=== PATIENT | female | born 1955 | race Caucasian/White ===

== ENCOUNTER 2017-10-29 11:40 | Day surgery (SDC) | payer BC ==
[~2017-10-29 11:40] MED LIST: Acetaminophen TAB* 325 MG PO PRN; Buffered Lidocaine 0.9% SYRIN* 5 ML/SYR SYRINGE INTRADERM ONE
[2017-10-29] MEDS ORDERED: Midazolam* 1 MG/ML 2 ML VIAL (2 MG) ONE ×2 (14:42→14:46)
[2017-10-29] MEDS ORDERED: fentaNYL* 50 MCG/ML 2 ML VIAL (100 MCG VIAL) ONE (14:50)
[2017-10-29 15:24] VITALS: BP 151/91
[2017-10-29] MEDS ORDERED: Neomycin/Polymy/Dex OPTH.SUSP* MAXITROL 0.1% 5 ML ONE (15:27)
[2017-10-29] MEDS ORDERED: Phenylephrine 2.5% OPTH.SOL* 2 ML BTL ONE (15:27)
[2017-10-29] MEDS ORDERED: Proparacaine 0.5% OPHTH.SOL* 15 ML BTL ONE (15:27)
[2017-10-29] MEDS ORDERED: acetaZOLAMIDE TAB* 250 MG ONE (15:27)
[2017-10-29] MEDS ORDERED: Lidocaine 2% EPI 1:200000 MPF*10-20 ML VIAL ONE (15:27)
[2017-10-29] MEDS ORDERED: Povidone Iodine 5% OPTH* 30 ML BTL ONE (15:27)
[2017-10-29] MEDS ORDERED: Cyclopentolate 1% OPTH.SOL* 2 ML BTL ONE (15:27)
[2017-10-29] MEDS ORDERED: Lidocaine 1%* 5 ML VIAL ONE (15:27)
[2017-10-29] MEDS ORDERED: Ketorolac 0.5% OPHTH (NF) 0.5 % 5 ML BTL ONE (15:27)
--- NOTE | 2017-10-30 07:37 | OP ---
DATE OF OPERATION: 10/29/17 - [facility] DATE OF : 51 SURGEON: Jaime Taylor M.D. PREOPERATIVE DIAGNOSIS: Cataract, right extract and glaucoma, right. POSTOPERATIVE DIAGNOSIS: Cataract, right extract and glaucoma, right. OPERATIVE PROCEDURE: Extracapsular cataract extraction with intraocular lens, right, and CyPass device. DESCRIPTION OF PROCEDURE: The patient was brought to the operating room after being given 1/2% Alcaine with epinephrine drops in the preoperative area. The eye was prepped and draped in the usual sterile fashion. Sterile drape and eyelid speculum were placed. Again, topical 1/2% Alcaine with epinephrine was given. A paracentesis incision was made at the 9 o'clock position with the No.75 blade. Clear cornea incision 2.2 x 2.2-mm was created at the 12 o'clock position starting at the anterior limbus using the 2.2-mm keratome. The anterior chamber was irrigated with 0.4 mL of 1% non-preservative intracameral lidocaine and filled with DisCoVisc. A capsulorrhexis was completed using the cystotome and the Utrata forceps. Hydrodissection was performed with balanced salt solution. The lens nucleus was removed with the Phacoemulsification handpiece without incident. Cortex was removed with the irrigation-aspiration handpiece. The capsular bag was re-inflated using DisCoVisc and an [id number] _ implant was inserted with the shooter followed by a CyPass. CYP-241-S inserted into the suprachoroidal space at the 2:30 position. Some reflex hemorrhage was noted with insertion of the device. The eye was pressurized and the hemorrhage stopped immediately. The irrigation-aspiration handpiece was used to remove all residual DisCoVisc. The eye was refilled with balanced salt solution and the wound checked and found to be watertight. Topical Maxitrol drops were given. [id number]/[facility] #: [id number] [facility]ENTER[facility]
== END 2017-10-29 15:29 | disposition home or self-care (01) ==
LOC: OREAST 11:40
PROVIDERS: ATTEND Specialist
DX: H25.11 Age-related nuclear cataract, right eye (principal); H40.1133 Primary open-angle glaucoma, bilateral, severe stage; H43.813 Vitreous degeneration, bilateral; D13.4 Benign neoplasm of liver; K82.8 Other specified diseases of gallbladder; M19.90 Unspecified osteoarthritis, unspecified site; F41.9 Anxiety disorder, unspecified
CPT/HCPCS: A9270-GY; J2250; J3010; V2632

== ENCOUNTER 2017-11-05 09:22 | Day surgery (SDC) | payer BC ==
[2017-11-05] MEDS ORDERED: acetaZOLAMIDE TAB* 250 MG ONE (11:03)
[2017-11-05] MEDS ORDERED: Povidone Iodine 5% OPTH* 30 ML BTL ONE (11:03)
[2017-11-05] MEDS ORDERED: Cyclopentolate 1% OPTH.SOL* 2 ML BTL ONE (11:03)
[2017-11-05] MEDS ORDERED: Lidocaine 1%* 5 ML VIAL ONE (11:03)
[2017-11-05] MEDS ORDERED: Lidocaine 2% EPI 1:200000 MPF*10-20 ML VIAL ONE (11:03)
[2017-11-05] MEDS ORDERED: Proparacaine 0.5% OPHTH.SOL* 15 ML BTL ONE (11:03)
[2017-11-05] MEDS ORDERED: Neomycin/Polymy/Dex OPTH.SUSP* MAXITROL 0.1% 5 ML ONE (11:03)
[2017-11-05] MEDS ORDERED: Ketorolac 0.5% OPHTH (NF) 0.5 % 5 ML BTL ONE (11:03)
[2017-11-05] MEDS ORDERED: Phenylephrine 2.5% OPTH.SOL* 2 ML BTL ONE (11:03)
[2017-11-05] MEDS ORDERED: Midazolam* 1 MG/ML 2 ML VIAL (2 MG) ONE (11:36)
[2017-11-05] MEDS ORDERED: Propofol* 10 MG/ML 20 ML BTL IV PUSH ONE (11:42)
[2017-11-05] MEDS ORDERED: Lidocaine 2% PF * 5 ML VIAL ONE (11:42)
[2017-11-05 12:16] VITALS: BP 147/86
--- NOTE | 2017-11-06 02:45 | OP ---
DATE OF OPERATION: 11/05/17 - [facility] DATE OF : 51 SURGEON: Jaime Taylor M.D. PREOPERATIVE DIAGNOSIS: Cataract, left extract and glaucoma, left. POSTOPERATIVE DIAGNOSIS: Cataract, left extract and glaucoma, left. OPERATIVE PROCEDURE: Extracapsular cataract extraction with intraocular lens implant left eye and CyPass left. DESCRIPTION OF PROCEDURE: The patient was brought to the operating room after being given 1/2% Alcaine with epinephrine drops in the preoperative area. The eye was prepped and draped in the usual sterile fashion. Sterile drape and eyelid speculum were placed. Again, topical 1/2% Alcaine with epinephrine was given. A paracentesis incision was made at the 3 o'clock position with the No.75 blade. Clear cornea incision 2.2 x 2.2-mm was created at the 6 o'clock position starting at the anterior limbus using the 2.2-mm keratome. The anterior chamber was irrigated with 0.4 mL of 1% non-preservative intracameral lidocaine and filled with DisCoVisc. A capsulorrhexis was completed using the cystotome and the Utrata forceps. Hydrodissection was performed with balanced salt solution. The lens nucleus was removed with the Phacoemulsification handpiece without incident. Cortex was removed with the irrigation-aspiration handpiece. The capsular bag was re-inflated using DisCoVisc and an SN6AT4, 13.5 implant was inserted with the shooter, oriented to 139 degree access. Horizontal reference shaver were made with the patient in seated position in the preoperative area, followed by a CyPass. CYP-241-S, inserted with its shooter into the ciliary space at the 2:30 position. The irrigation-aspiration handpiece was used to remove all residual DisCoVisc. The eye was refilled with balanced salt solution and the wound checked and found to be watertight. Topical Maxitrol drops were given. [id number]/[facility] #: [id number] [facility]
== END 2017-11-05 12:28 | disposition home or self-care (01) ==
LOC: OREAST 09:22
PROVIDERS: ATTEND Specialist
DX: H25.12 Age-related nuclear cataract, left eye (principal); H40.1133 Primary open-angle glaucoma, bilateral, severe stage; H43.813 Vitreous degeneration, bilateral; K82.8 Other specified diseases of gallbladder; D13.4 Benign neoplasm of liver; E78.5 Hyperlipidemia, unspecified; M19.90 Unspecified osteoarthritis, unspecified site; F41.9 Anxiety disorder, unspecified
CPT/HCPCS: A9270-GY; C1783; J2250; J2704; V2787

== ENCOUNTER 2019-01-15 19:27 | Emergency (ER) | payer BC ==
[2019-01-15] MEDS ORDERED: EPINEPHRINE 1 MG/ML 1 ML VIAL IM ONE (19:50)
[2019-01-15] MEDS ORDERED: NS 0.9% 1000 ML** 2,000 ML IV ONE (19:51)
[2019-01-15] MEDS ORDERED: Famotidine IV* 10 MG/ML 2 ML (20 mg) IV SLOW PU ONE (19:51)
[2019-01-15] MEDS ORDERED: methylPREDNISolone 125 MG* 2 ML VIAL IV ONE (19:51)
[2019-01-15] MEDS ORDERED: diPHENhydraMINE IV* 50 MG/ML 1 ml VIAL (BENADRYL) SLOW PUSH ONE (19:51)
--- NOTE | 2019-01-15 20:47 | ED ---
Allergic Reaction/Systemic - HPI Summary HPI Summary: 63-year-old female presents with allergic reaction today. She states she bit multiple times by a bee on her tongue. She states that her tongue started to swell. She states that she was having difficulty swallowing but that has improved. Denies any chest pain or shortness of breath. No vomiting or nausea. No rash. Has been states that has been stung by a bee before and has had swelling. She took a benadryl prior to arrival and is feeling better. - History of Current Complaint Chief Complaint: EDAllergicReaction Time Seen by Provider: 01/15/19 19:45 Pain Intensity: 4 - Allergies/Home Medications Allergies/Adverse Reactions: Allergies Allergy/AdvReac Type Severity Reaction Status Date / Time codeine Allergy Hives Verified 01/15/19 19:35 Penicillins Allergy Hives Verified 01/15/19 19:35 sertraline [From Zoloft] Allergy Hives Verified 01/15/19 19:35 PMH/Surg Hx/FS Hx/Imm Hx Endocrine/Hematology History: Denies: Hx Anticoagulant Therapy Respiratory History: Denies: Hx Asthma Opthamlomology History: Reports: Hx Glaucoma Infectious Disease History: No Infectious Disease History: Denies: Traveled Outside the [place] in Last 30 Days - Family History Known Family History: Positive: Non-Contributory - Social History Alcohol Use: Weekly Substance Use Type: Reports: None Smoking Status (MU): Never Smoked Tobacco Review of Systems Negative: Fever Positive: Other - tongue swelling Negative: Chest Pain Negative: Shortness Of Breath All Other Systems Reviewed And Are Negative: Yes Physical Exam Triage Information Reviewed: Yes Vital Signs On Initial Exam: Initial Vitals Temp Pulse Resp BP Pulse Ox 98.2 F 63 16 182/110 98 01/15/19 19:29 01/15/19 19:29 01/15/19 19:29 01/15/19 19:29 01/15/19 19:29 Vital Signs Reviewed: Yes Appearance: Positive: Well-Appearing Skin: Positive: Warm, Dry Head/Face: Positive: Normal Head/Face Inspection Eyes: Positive: Normal, EOMI, DEJA, Conjunctiva Clear ENT: Positive: Normal ENT inspection, Pharynx normal, TMs normal, Other - tongue swollen Respiratory/Lung Sounds: Positive: Clear to Auscultation, Breath Sounds Present Cardiovascular: Positive: Normal, RRR Musculoskeletal: Positive: Normal Neurological: Positive: Normal Psychiatric: Positive: Normal Procedures - Sedation Patient Received Moderate/Deep Sedation with Procedure: No Diagnostics - Vital Signs Vital Signs Temp Pulse Resp BP Pulse Ox 01/15/19 19:29 98.2 F 63 16 182/110 98 - Laboratory Lab Statement: Any lab studies that have been ordered have been reviewed, and results considered in the medical decision making process. Re-Evaluation - Re-Evaluation First Eval Re-Evaluation Time: 21:10 Change: Improved Comment: feeling better, tongue less swollen Allergic Reaction Course/Dx - Course Course Of Treatment: 63-year-old female presents with allergic reaction today. She states she bit multiple times by a bee on her tongue. She states that her tongue started to swell. She states that she was having difficulty swallowing but that has improved. Denies any chest pain or shortness of breath. No vomiting or nausea. No rash. Has been states that has been stung by a bee before and has had swelling. She took a benadryl prior to arrival and is feeling better. On exam tongue enlarged. Pharynx is normal. Lungs clear to auscultation. patient swelling on tongue went down. will discharge with prednisone and pepcid and benadryl. patient understand and agrees with plan. - Diagnoses Differential Diagnosis/HQI/PQRI: Positive: Anaphylaxis, Angioedema, Local Allergic Reaction Provider Diagnoses: Bee sting Discharge ED - Sign-Out/Discharge Documenting (check all that apply): Patient Departure - Discharge Plan Condition: Good Disposition: HOME Prescriptions: Famotidine TAB* [Pepcid 20 MG TAB*] 20 mg PO BID #8 tab predniSONE TAB* [Deltasone TAB*] 50 mg PO DAILY #4 tab Patient Education Materials: Insect Bite or Sting (ED) Referrals: Cora Sheriff MD [Primary Care Provider] - Additional Instructions: Take Benadryl every 6 hours Take Pepcid twice a day for 5 days Take steroid once a day for [address] ice on the area Return to ED if shortness of breath, chest pain, or if develop any new or worsening symptoms - Billing Disposition and Condition Condition: GOOD Disposition: Home
[2019-01-15 22:43] VITALS: BP 157/99
== END 2019-01-15 22:41 | disposition home or self-care (01) ==
LOC: EDBD → ED 19:27 → MERGE 19:27 → ED 22:41
DX: T63.441A Toxic effect of venom of bees, accidental (unintentional), initial encounter (principal); Y92.9 Unspecified place or not applicable; R60.0 Localized edema
CPT/HCPCS: 96361; 96372; 96374; 96375; 99284; J1200; J2930